=== PATIENT | male | born 1990 | race Hispanic/Latino ===

== ENCOUNTER 2019-09-08 17:23 | Inpatient (IN) | payer OTHER, SELFPAY ==
[~2019-09-08 17:23] MED LIST: Iopamidol-370 76% 500 ML 1 ML ONE; Lidocaine 2% PF 5 ML VIAL ONE
[2019-09-08 17:42] LABS: #Basophils 0.1 thou/uL (0.0-0.2); #Eosinphils 0.1 thou/uL (0.0-0.7); #Lymphocytes 5.3 thou/uL (1.20-3.40); #Monocytes 0.7 thou/uL (0.11-0.59); #Neutrophils 4.7 thou/uL (1.40-6.50); %Basophils 0.9 % (0.0-1.0); %Eosinophils 0.5 % (0.0-10.0); %Lymphocytes 48.9 % (21.0-51.0); %Monocytes 6.1 % (0.0-10.0); %Neutrophils 43.6 % (42.0-75.0); Hemoglobin 15.9 g/dL (14.0-18.0); Mean Corpuscular HGB CONC 34.9 g/dL (32.0-36.0); Mean Corpuscular Volume 91.7 fL (78.0-98.0); Mean Platelet Volume 8.5 fL (7.4-10.4); Platelet Count 243 thou/uL (130-400); RBC Distribution Width 11.5 % (11.5-14.5); Red Blood Cell (RBC) Count 4.99 mill/uL (4.70-6.10); White Blood Cell (WBC) Count 10.8 thou/uL (4.8-10.8)
[2019-09-08 17:46] LABS: INR-International Normal Ratio 1.2; PTT 30.2 SEC (22.9-36.1); Prothrombin Time 15.1 SEC (12.0-14.7)
[2019-09-08] MEDS ORDERED: Succinylcholine Chloride 20 MG/ML 10 ml SYRINGE FS ONE (17:48)
[2019-09-08 17:54] LABS: ALT (SGPT) 20 U/L (8-55); AST (SGOT) 20 U/L (5-34); Albumin 4.2 g/dL (3.5-5.0); Alkaline Phosphatase 87 U/L (40-110); Anion Gap 17 mmol/L (10-20); BUN (Urea Nitrogen) 24 mg/dL (8.9-20.6); Bilirubin, Total 0.8 mg/dL (0.2-1.2); Calc. Creatinine Clearance 0 mL/min (70-130); Carbon Dioxide 16 mmol/L (22-29); Chloride 110 mmol/L (98-107); Estimated GFR-MDRD 74; Globulin 2.7 g/dL (2.4-3.5); Protein, Total 6.9 g/dL (6.0-8.3); Sodium 140 mmol/L (136-145)
--- NOTE | 2019-09-08 17:54 | RAD ---
Chest one view HISTORY: Injury. FINDINGS: Cardiac silhouette and pulmonary vasculature are unremarkable. Mediastinum is midline. Tip of an endotracheal catheter overlies the thoracic inlet. Nasogastric tube descends to the abdomen . No lobar consolidation or evidence of pneumothorax. No displaced fractures evident. component prep operator leads overlie the chest. IMPRESSION : Nasogastric tube and endotracheal catheter are in good radiographic position.
[2019-09-08] MEDS ORDERED: Midazolam HCl 2 mg/2 ml Vial ONE (17:56)
[2019-09-08] MEDS ORDERED: Rocuronium Bromide 10 MG/ML (10ML VIAL) ONE (17:57)
[2019-09-08 18:01] LABS: Glucose 163 mg/dL (70-105); Potassium 2.8 mmol/L (3.5-5.1)
[2019-09-08] MEDS ORDERED: fentaNYL Citrate/PF 2,000 MCG in Sodium Chloride 0.9% 60 ML IV SCH ×2 (18:06→20:32)
[2019-09-08] MEDS ORDERED: Adacel (T-DAP) 0.5 ML SYRINGE ONE (18:11)
[2019-09-08] MEDS ORDERED: Fentanyl 100 MCG/2 ML VIAL ONE ×2 (18:11)
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
[2019-09-08] MEDS ORDERED: Potassium Chloride 40 MEQ in Sodium Chloride 0.9% 250 ML 250 ML IVPB SCH (18:30)
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
[2019-09-08 18:53] LABS: Actual Bicarbonate (HCO3a) 15.5 mEq/L (22-28); Analyzer IN Cardio ER; Base Excess (BEa) -6.9 mEq/L (-2.0 to +3.0); Calcium, Ionized 1.11 mmol/L (1.12-1.30); Carboxyhemoglobin (COHb) 0.3 gm% (0.0-3.0); Hemoglobin (Hb) 14.6 g/dL (14.0-18.0); O2 Tension (PaO2) 289.7 mmHg (80.0-100.0); Potassium - ABG Lab 3.58 mmol/L (3.70-5.30); pH, Arterial 7.42 (7.35-7.45)
[2019-09-08 18:55] LABS: CO2 Tension 24.5 mmHg (35.0-45.0)
[2019-09-08 18:56] LABS: ALV-art Gradient 36.175 (0-20)
[2019-09-08 19:23] LABS: Bacteria/HPF None Seen HPF (None Seen); Bilirubin Negative (Negative); Blood, Urine Negative (Negative); Clarity Clear (Clear); Glucose, Urine (Dipstick) Normal (Negative); Leukocyte Negative Leu/uL (Negative); Nitrite Negative (Negative); Protein, Urine (Dipstick) 30 mg/dL (Neg-Trace); RBC/HPF 0-3 HPF (0-3); Squamous Epithelial None Seen HPF (0-3); WBC/HPF 0-3 HPF (0-3)
[2019-09-08 19:30] LABS: Amphetamine Not Detected (NotDetected); Barbiturates Screen Not Detected (NotDetected); Benzodiazepine Screen Not Detected (NotDetected); Cocaine Metabolite Screen Not Detected (NotDetected); Medtox Control Line Valid? VALID (VALID); Medtox Reader # READER 1; Methadone Not Detected (NotDetected); Methamphetamine Not Detected (NotDetected); Opiate Screen Not Detected (NotDetected); Oxycodone Screen Not Detected (NotDetected); Phencyclidine (PCP) Not Detected (NotDetected); THC/Cannabinoid Screen Not Detected (NotDetected); Tricyclic Screen Not Detected (NotDetected)
--- NOTE | 2019-09-08 20:14 | CT ---
CT arteriogram neck with IV contrast and 3-D imaging CT arteriogram head with IV contrast and 3-D imaging HISTORY: Injury. Extensive skull base fracture. FINDINGS: There is good contrast opacification of the aortic arch with normal branching of the great vessels. Good flow into each carotid and vertebral system. No evidence of dissection. At the left cavernous sinus, there is early contrast opacification. Flow is seen within the left inte rnal carotid artery. This is at the level of the coronally oriented sphenoid fracture. Extensive pneumocephalus and other traumatic findings are as detailed on prior CT brain and face. [place] is intact. Good flow into each cerebral and cerebellar system. No enhancing brain le sions. IMPRESSION : Left carotid-cavernous fistula. Findings were called to Dr. Harris in the emergency department at 2001 hours. Code CR.
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
[2019-09-08] MEDS ORDERED: Ondansetron ODT 4 MG TAB PO PRN (20:26)
[2019-09-08] MEDS ORDERED: Ventilator Sedation Protocol 1 EACH FS SCH (20:26)
[2019-09-08] MEDS ORDERED: hydrALAZINE 20 MG/ML VIAL SLOW IVP PRN (20:26)
[2019-09-08] MEDS ORDERED: Dextrose 5% in Water 1,000 ML IV PRN (20:26)
[2019-09-08] MEDS ORDERED: Ondansetron PF 4 MG/2 ML Vial IVP PRN (20:26)
[2019-09-08] MEDS ORDERED: Dextrose 50% Abboject 50 ML SYRINGE SLOW IVP PRN (20:26)
[2019-09-08] MEDS ORDERED: Propofol BOLUS 1,000 MG/100 ML VIAL IV PRN (20:32)
[2019-09-08] MEDS ORDERED: Fentanyl BOLUS 250 ML IVPB PRN (20:32)
[2019-09-08] MEDS ORDERED: Morphine 2 MG/ML SYRINGE SLOW IVP PRN (20:32)
[2019-09-08] MEDS ORDERED: Lorazepam 2 MG/ML VIAL SLOW IVP PRN (20:32)
[2019-09-08] MEDS ORDERED: DISCONTINUE PREVIOUS NARCOTIC PAIN MEDICATIONS AND BENZODIAZEPINES FS SCH (20:32)
[2019-09-08] MEDS ORDERED: Propofol 1,000 MG/100 ML VIAL IV PRN (20:32)
[2019-09-08 20:41] LABS: Actual Bicarbonate (HCO3a) 18.3 mEq/L (22-28); Analyzer IN Cardio OR; Base Excess (BEa) -6.2 mEq/L (-2.0 to +3.0); CO2 Tension 33.2 mmHg (35.0-45.0); Calcium, Ionized 1.13 mmol/L (1.12-1.30); Carboxyhemoglobin (COHb) 0.3 gm% (0.0-3.0); Hemoglobin (Hb) 14.4 g/dL (14.0-18.0); O2 Tension (PaO2) 194.8 mmHg (80.0-100.0); pH, Arterial 7.36 (7.35-7.45)
[2019-09-08] MEDS: Sodium Chloride 0.9% 1,000 ML IV SCH (20:44)
[2019-09-08 20:47] LABS: Puncture Site RRA
[2019-09-08] MEDS ORDERED: Famotidine/PF 20 mg/2ml Vial SLOW IVP SCH (21:00)
[2019-09-08] MEDS: Pantoprazole 40 MG VIAL IVP SCH (21:41)
[2019-09-08] MEDS: CEFAZOLIN 2 GM in Premix Bag 1 BAG IVPB SCH (21:42)
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
[2019-09-09 03:38] LABS: #Lymphocytes 1.2 thou/uL (1.20-3.40); #Monocytes 1.3 thou/uL (0.11-0.59); %Basophils 0.1 % (0.0-1.0); %Eosinophils 0.2 % (0.0-10.0); %Lymphocytes 6.4 % (21.0-51.0); %Monocytes 6.8 % (0.0-10.0); %Neutrophils 86.6 % (42.0-75.0); Mean Corpuscular HGB CONC 34.8 g/dL (32.0-36.0); Mean Corpuscular Hemoglobin 31.7 pg (27.0-31.0); Mean Corpuscular Volume 91.2 fL (78.0-98.0); Mean Platelet Volume 8.4 fL (7.4-10.4); Platelet Count 195 thou/uL (130-400); RBC Distribution Width 11.6 % (11.5-14.5); White Blood Cell (WBC) Count 18.5 thou/uL (4.8-10.8)
[2019-09-09 03:55] LABS: Anion Gap 11 mmol/L (10-20); BUN (Urea Nitrogen) 20 mg/dL (8.9-20.6); Calc. Creatinine Clearance 99 mL/min (70-130); Calcium 7.8 mg/dL (7.8-10.44); Carbon Dioxide 20 mmol/L (22-29); Chloride 111 mmol/L (98-107); Estimated GFR-MDRD Greater than 90; Glucose 134 mg/dL (70-105); Potassium 3.9 mmol/L (3.5-5.1); Sodium 138 mmol/L (136-145)
[2019-09-09] MEDS ORDERED: Sodium Chloride 0.9% 500 ML IV PRN (04:00)
[2019-09-09] MEDS ORDERED: Sodium Chloride 0.9% 500 ML IV SCH (04:00)
[2019-09-09] MEDS ORDERED: Sodium Chloride 0.9% 500 ML IV ONE (04:00)
[2019-09-09] MEDS: CEFAZOLIN 2 GM in Premix Bag 1 BAG IVPB SCH ×3 (05:35→20:59)
[2019-09-09] MEDS: Sodium Chloride 0.9% 1,000 ML IV SCH ×2 (05:35→12:46)
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
[2019-09-09 08:25] LABS: Actual Bicarbonate (HCO3a) 18.9 mEq/L (22-28); Base Excess (BEa) -5.3 mEq/L (-2.0 to +3.0); CO2 Tension 32.4 mmHg (35.0-45.0); Calcium, Ionized 1.11 mmol/L (1.12-1.30); Carboxyhemoglobin (COHb) 0.3 gm% (0.0-3.0); Hemoglobin (Hb) 12.2 g/dL (14.0-18.0); O2 Tension (PaO2) 211.6 mmHg (80.0-100.0); Potassium - ABG Lab 3.79 mmol/L (3.70-5.30); pH, Arterial 7.38 (7.35-7.45)
[2019-09-09 08:27] LABS: Puncture Site RRA
--- NOTE | 2019-09-09 08:35 | CT ---
PRELIMINARY REPORT/[facility]/EMERGENCY AFTER HOURS PROCEDURE: EXAM: CT Head Without Intravenous Contrast. CLINICAL HISTORY: F/U TBI TECHNIQUE: Axial computed tomography images of the head/brain without intravenous contrast. COMPARISON: CT\NH\SR - CT BRAIN WO CON - 09/08/2019 05:50 PM CDT FINDINGS: BRAIN: No acute intraparenchymal hemorrhage. No mass lesion. No CT evidence for acute territorial inf arct. No midline shift or extra-axial collection. VENTRICLES: No hydrocephalus. SINUSES AND MASTOIDS: There is small air fluid level seen in bilateral maxillary sinuses, slightly in creased compared to prior examination. SOFT TISSUES: No significant facial or scalp soft tissue swelling evident. No radiopaque foreign body is seen. BONES: There is extensive skull base fracture including the left temporal bone, petrous bone, sphenoi d bone, right petrous bone. There is fracture of the anterior wall of the left maxillary sinus. There is a fracture of the lateral wall of the left maxillary sinus and the left orbit. MISCELLANEOUS: There is a pneumocephalus, decreased compared to prior examination. IMPRESSION: 1. There is extensive skull base fracture including the left temporal bone, petrous bone, sphenoid anur[place]ha ne, right petrous bone. There is fracture of the anterior wall of the left maxillary sinus. There is a fracture of the lateral wall of the left maxillary sinus and the left orbit. 2. There is a pneumocephalus, decreased compared to prior examination. 3. There is small air fluid level seen in bilateral maxillary sinuses, slightly increased compared to prior examination. ELECTRONICALLY SIGNED BY: Morena Robb MD Sep 09, 2019 4:21:13 AM CDT This report is intended for review by the ordering physician only, in accordance of law. If you recei ve this report in error, please call [facility] at [phone]. FINAL REPORT EMERGENCY AFTER HOURST CT BRAIN: IMPRESSION: Agree with the preliminary interpretation. POS: JOSEY
--- NOTE | 2019-09-09 08:59 | RAD ---
PORTABLE CHEST: DATE: 09/09/2019. PROVIDED CLINICAL HISTORY: Respiratory insufficiency. FINDINGS: Comparison 09/08/2019. Cardiac and mediastinal silhouette is unchanged in appearance. Endotracheal t ube and enteric catheter were demonstrated in similar positions. No focal consolidation, pleural flu id, or pneumothorax apparent. IMPRESSION: Stable radiographic appearance of the chest. POS: JOSEY
[2019-09-09] MEDS: Pantoprazole 40 MG VIAL IVP SCH (09:03)
--- NOTE | 2019-09-09 11:47 | PRG ---
DATE OF SERVICE: 09/09/2019 SUBJECTIVE: Mr. Bill Dewitt is a 28-year-old man, who suffered blunt head trauma yesterday while working on the vehicle. He sustained multiple traumatic injuries including multiple skull base fractures, left carotid/cavernous fistula. No apparent intracranial parenchymal hemorrhage. The patient has remained on mechanical ventilator support overnight. This morning, when lied on sedation, he moves all extremities and follows commands with a [place] Coma Scale of 11T. He has had transient right mydriasis. Urinary output which was low responded to fluid boluses. Currently, urinary output is adequate for the patient's age and weight. OBJECTIVE: VITAL SIGNS: Currently include blood pressure of 109/60, pulse 84, respiratory rate is 18, temperature 98.5 degrees Fahrenheit, oxygen saturation is 100% on FiO2 of 30%. HEENT: Right pupil is 4 mm, left is 3 mm, and both are reactive to light. HEART: Regular rate and rhythm. LUNGS: Clear to auscultation bilaterally. Breathing regular and nonlabored. ABDOMEN: Soft, nontender, nondistended. Liver and spleen nonpalpable below costal margin. EXTREMITIES: 2+ radial and pedal pulses bilaterally. No ankle edema is present. NEUROLOGIC: No focal deficits present. LABORATORY FINDINGS: CBC with 18,500 white blood cells, hemoglobin and hematocrit 14.0 and 40.2 respectively, platelet count is 195,000. Metabolic profile; sodium 138, potassium 3.9, chloride is 111, bicarb 20, BUN 20, creatinine 0.89, glucose 134. IMPRESSIONS: Post injury, 1. Status post blunt head trauma. 2. Multiple skull base fractures with resolving pneumocephalus on repeat brain CT scan this morning. 3. Resolving acute posttraumatic respiratory failure. PLAN: 1. The patient is weaned and successfully extubated to nasal cannula oxygen. 2. We will initiate physical and occupational therapy. 3. Cerna catheter will be discontinued. 4. Above findings and plan discussed with the patient prior to intubation. TIME SPENT: Total critical care time is 35 minutes. Job ID: [id number]
[2019-09-09] MEDS ORDERED: traMADol HCl 50 MG TAB PO PRN (14:17)
[2019-09-09] MEDS ORDERED: Acetaminophen 500 MG TAB PO SCH (14:30)
[2019-09-09] MEDS: Acetaminophen 325 MG TAB PO SCH ×2 (15:27→19:31)
[2019-09-09] MEDS: Famotidine 20 MG TAB PO SCH (19:31)
[2019-09-09] MEDS: traMADol HCl 50 MG TAB PO PRN (19:34)
--- NOTE | 2019-09-10 00:14 | PRG ---
DATE OF SERVICE: 09/09/2019 SUBJECTIVE: Mr. Dewitt remains in ICU. The patient was extubated today. The patient tolerated with extubation pretty well. He is doing good. Pain was well controlled. His urine is adequate. His vital signs have been stable. PHYSICAL EXAMINATION: GENERAL: Currently, the patient is lying down in bed, comfortable, with no acute respiratory distress. VITAL SIGNS: Heart rate 75, blood pressure 101/62, and O2 saturation 100% on room air. LUNGS: Clear bilaterally. HEART: Regular rate and rhythm. ABDOMEN: Soft, nondistended. HEENT: Right pupil is 3 mm, reactive to light. The left pupil is 4 to 5 mm, unresponsive to light. NEUROLOGIC: The patient is able to move all extremities. Gross sensory intact. GCS 15. ASSESSMENT: 1. Status post blunt head trauma. 2. Multiple skull base fracture, with result of pneumocephalus on repeat CT scan. PLAN: Continue supportive care. Continue pain control. Anticipate transfer to surgical floor tomorrow. Job ID: [id number]
[2019-09-10] MEDS: Acetaminophen 325 MG TAB PO SCH ×4 (03:39→22:10)
[2019-09-10 04:05] LABS: #Eosinphils 0.1 thou/uL (0.0-0.7); #Lymphocytes 1.4 thou/uL (1.20-3.40); #Monocytes 0.7 thou/uL (0.11-0.59); %Basophils 0.2 % (0.0-1.0); %Eosinophils 0.7 % (0.0-10.0); %Lymphocytes 13.7 % (21.0-51.0); %Monocytes 7.2 % (0.0-10.0); %Neutrophils 78.2 % (42.0-75.0); Hemoglobin 11.4 g/dL (14.0-18.0); Mean Corpuscular HGB CONC 33.8 g/dL (32.0-36.0); Mean Corpuscular Hemoglobin 31.4 pg (27.0-31.0); Mean Corpuscular Volume 92.8 fL (78.0-98.0); Mean Platelet Volume 8.4 fL (7.4-10.4); Platelet Count 163 thou/uL (130-400); RBC Distribution Width 11.5 % (11.5-14.5); Red Blood Cell (RBC) Count 3.63 mill/uL (4.70-6.10); White Blood Cell (WBC) Count 10.3 thou/uL (4.8-10.8)
[2019-09-10] MEDS: CEFAZOLIN 2 GM in Premix Bag 1 BAG IVPB SCH ×3 (05:42→22:10)
--- NOTE | 2019-09-10 09:52 | PRG ---
DATE OF SERVICE: 09/10/2019 I saw Mr. Dewitt in the ICU this morning. The patient has been extubated. Can now communicate. At baseline he has some weakness of the lateral rectus, corrects with effort. This is in the left eye. Also, in the left eye, there is loss of vision. Light and dark can be appreciated, but he cannot count fingers. Among the electronically recorded vital signs, 99.0 is the right temperature actually, blood pressure is between 90s and 100s. The aforementioned deficits are found on his neurological examination. That is a relative afferent pupillary defect on the left due to loss of vision. There is some weakness of the sixth nerve or perhaps a reversion to a latent strabismus with loss of vision from that eye. Medial rectus trapping from fracture is possible as well. However, when he voluntarily moves the eye, he has good lateral rectus function and he can move his eyes in multiple directions with primary gaze in a fashion that is conjugate with the contralateral eye. The sclera is not injected. The eye is not proptotic. The lid is not swollen. There is no pronator drift or neglect. I do not find any other lateralizing neurological deficits. Our plan with Mr. Dewitt for his small CC fistula and severe skull base fractures is for conservative approach for now. Hopefully his inflammatory response of the fractures, via loss any CSF leaks that were created in that the room of the optic canal allows for some recovery of vision. As mentioned yesterday, any surgical approach to that optic nerve puts the carotid artery at risk along with the left cerebral hemisphere. Job ID: [id number] MTDD
[2019-09-10] MEDS: Famotidine 20 MG TAB PO SCH ×2 (10:16→22:10)
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
[2019-09-11] MEDS: Acetaminophen 325 MG TAB PO SCH ×4 (05:22→23:45)
[2019-09-11] MEDS: CEFAZOLIN 2 GM in Premix Bag 1 BAG IVPB SCH ×3 (05:23→21:20)
--- NOTE | 2019-09-11 06:56 | CON ---
DATE OF CONSULTATION: 09/10/2019 TIME OF CONSULT: 12 noon. REASON FOR CONSULTATION: Loss of vision, left eye. HISTORY OF PRESENT ILLNESS: The patient is a 29-year-old man who was working underneath his car when the kb or other support tipped and the car fell on him. He was brought to the emergency room and intubated on 09/08/2019. After he was extubated, he stated that his left eye could not see well. PHYSICAL EXAMINATION: On examination, visual acuity without correction was J-1 for the right eye, which is normal. The left eye has absolute no light perception. The pupils are equal with a 4+ left relative afferent pupillary defect. The motility shows good alignment and full range of motion. Externally, he is fairly normal appearing with some mild bruising without swelling of the left lids and one small subconjunctival hemorrhage of the left eye. His pupils were dilated with Jose Maria-Synephrine and Mydriacyl. Fundus exam showed a cup/disk ratio of 0.4 for the right eye and 0.3 for the left eye. Optic rims at this time are of normal color, without edema. Both retinas are flat, without any defect, edema, or hemorrhages. The retinal vessels are patent. DIAGNOSTIC STUDIES: I visited with the radiologist who reviewed the left optic canal region, showing no obvious localized crush of the optic canal and optic nerve. IMPRESSION: Presumably, there is some point of damage to the optic nerve by some of the fractures. There is no expectation of recovery and no specific treatment recommended at this time. Job ID: [id number]
[2019-09-11] MEDS: traMADol HCl 50 MG TAB PO PRN ×2 (07:28→21:20)
[2019-09-11] MEDS: Famotidine 20 MG TAB PO SCH ×2 (08:15→21:21)
--- NOTE | 2019-09-11 08:49 | PRG ---
DATE OF SERVICE: Used to be Esdras, currently listed as Ezekiel. I visited with Bill Falcon in his hospital bed this morning. He is out of the ICU and he has been extubated. He still complains that he has a frontal headache and loss of vision on the left. Overnight, the highest temperature he recorded is 99.0 degrees Fahrenheit. Blood pressures have been in the 110s. There is still no vision other than light and dark from the left eye. The extraocular muscles do move the eye. I do believe the VIth nerve is working, although when gaze is relaxed, there is interval deviation of the left eye. Perhaps, there is latent strabismus and the eye is now markedly accentuated due to the loss of vision and no input through the optic system from the left side. We are planning in a few days to repeat the CT angiogram. It will be quite important on that test. We will get the CT done immediately following injection rather than allowing the venous phase to show up. They have a cavernous sinus filling last time, has either an early venous phase due to poor timing of the CT vis-a-vis the injection or there was a slow/small CC fistula. The eye remains noninjected and non-proptotic, so there is not undue pressure in the venous system or the superior orbital vein. Other than loss of vision, Mr. Falcon is doing well. Job ID: [id number] [facility]
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
[2019-09-12] MEDS: Acetaminophen 325 MG TAB PO SCH ×3 (05:20→19:12)
[2019-09-12] MEDS: CEFAZOLIN 2 GM in Premix Bag 1 BAG IVPB SCH ×2 (05:21→15:06)
[2019-09-12] MEDS: traMADol HCl 50 MG TAB PO PRN ×3 (05:21→19:12)
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
--- NOTE | 2019-09-12 08:53 | PRG ---
DATE OF SERVICE: 09/12/2019 I saw Mr. Falcon (previously Esdras) in his hospital room this morning. He is resting comfortably and asks when he can go home. Trauma Surgery Service is satisfied that no other injuries are life-threatening and likewise want to minimize his risk of exposure to infectious agents while in the hospital. Therefore, decision is being made to move his CT angiogram up in his schedule. Mr. Falcon has no new complaints. He still has no vision on the left side. Among the electronically recorded vital signs, I see a maximum temperature of 98.9 degrees Fahrenheit. Blood pressures have ranged between 105 and 123. There is no vision on the left side. There is accentuated motion with the extraocular muscles on the left side. There is no significant weakness of III, IV, or on that side, but he is losing his ability to conjugate his eye movements with his contralateral eye due to loss of vision. I do not find any lateralizing motor or sensory deficits. Plan today is get a CT angiogram. This has to be done with perfect contrast bolus to scan timing. If the scan is delayed and we get a venous phase filling throughout the brain scan, then we cannot make any assumptions regarding CC fistula. If, however, the scan is done with a bolus followed by immediate imaging, then we might be able to make some preliminary assessments as to whether he had a CC fistula that clotted off. Thankfully, the eye is not particularly injected, the sclera is normal in color, that is not proptotic, there is no lid engorgement. These all suggest that if there is a fistula, it is small. 10:58am addendum: The CTA was done. The venous phase still shows up on this scan, but there is no more prominence to the cavernous sinus on the left than there on the right or in the other venous sinuses. I am not convinced this is a high-flow fistula. He will need a repeat CT head in 1 month, which our office will arrange. If he develops an injected red sclera, proptosis, lid swelling on left, he will need a conventional angiogram. The ophthalmology team following his optic nerve injury/orbital fractures may have their own follow up arrangements requiring planning. Job ID: [id number] [facility]
[2019-09-12] MEDS: Famotidine 20 MG TAB PO SCH (09:05)
[2019-09-12] MEDS ORDERED: Iopamidol 370 76% 100 ML VIAL ONE (10:10)
--- NOTE | 2019-09-12 11:03 | CT ---
EXAM: CT ANGIOGRAM OF THE HEAD INDICATION: Follow-up posttraumatic left cavernous carotid fistula. COMPARISON: None TECHNIQUE: CT angiogram of the head and neck are performed in the axial plane. Three-dimensional refo rmatted images are submitted for interpretation. FINDINGS: CTA OF THE HEAD WITH AND WITHOUT CONTRAST: Noncontrast head CT: Small foci of pneumocephalus in the ventricular system is noted. The degree of p neumocephalus has significantly decreased. There is mucosal thickening of the visualized maxillary sinuses, ethmoid air cells and sphenoid sinuses. Multiple calvarial and facial fractures are redemons trated, incompletely evaluated. POSTCONTRAST CT OF BRAIN: Pathologic enhancement: No pathologic enhancement the brain. CTA OF THE BRAIN: Intracranial internal carotid arteries:Symmetric enhancement and luminal diameter. Anterior circulation: Symmetric enhancement and luminal diameter of the A1 and M1 segments. Symmetric enhancement and luminal diameter of the proximal A2 segments and proximal MCA branches. Intracranial vertebral arteries: Appropriate enhancement and luminal diameter. Bilateral PICA artery origins have appropriate enhancement and luminal diameter. Posterior circulation: Appropriate enhancement and luminal diameter of the basilar artery and bilater al P1 segments. Cavernous sinuses: On the arterial phase images, there continues to be an asymmetric increased blush of contrast in the left cavernous sinus, when compared to the contralateral side. There is symmetric enhancement involving the cavernous sinuses on the delayed images. Neither ophthalmic vein is significantly enlarged. IMPRESSION: Slight asymmetric blush of enhancement involving the left cavernous sinus on the arterial phase image s suggesting a residual cavernous carotid fistula. No significant ophthalmic vein dilatation. Transcribed Date/Time: 09/12/2019 11:16 AM
[2019-09-12 15:00] VITALS: BMI 22.4
[2019-09-12 16:06] VITALS: BP 107/67; TEMP 98.2
--- NOTE | 2019-09-14 08:01 | PQF ---
MIREYA GARCIA L GERARD MD [id number] CCU- [id number] CLINICAL DOCUMENTATION CLARIFICATION FORM: POST DISCHARGE Addendum to original discharge summary date: ____ Late entry note date: __ DATE:09/14/2019 ATTN: Gamaliel Herring Please exercise your independent, professional judgment in responding to the clarification form. Clinical indicators are provided on the bottom of this form for your review Please check appropriate box(s): Loss of consciousness Duration [ ] (30 min or less) [ ] (31 min to 59 min) [ ] (1 hour to 5 hours 59 min) [ ] (6 hours to 24 hours) [ ] Other Specified time: [ ] Unable to determine For continuity of documentation, please document condition throughout progress notes and discharge summary. Thank You. CLINICAL INDICATORS - SIGNS/ SYMPTOMS / LABS GCS 11 ED note p8 Pt working underneath the car and fell on him. States pt was originally unconscious but breathing ED note p8 Associated with loss of consciousness, blown L pupul , bleeding both nostrils and R ear H&P p2 09/07 S/p Crush injury to head with altered mental status PN p1 09/07 pneumocephalus with cerebral edema RISK FACTORS H&P p1 09/07 28 year-old male H&P p2 4 Multiple basilar fractures H&P p2 09/07 Pneumocephalus with left sided cerebral edema Consult p1 09/07 s/p fall PN p1 09/10 Carotid cavernous fistula TREATMENTS: JUL 26 Tylenol 560mg oral JUL 26 Utram 50mg oral JUL 26 IVF NS 1L Brain CT 09/07 PN p1 09/07 Mechanical Ventilation (This form is maintained as a part of the permanent medical record) 2014 [employer]. All Rights Reserved [email or web address]
--- NOTE | 2019-09-14 14:00 | CT ---
CT arteriogram neck with IV contrast and 3-D imaging CT arteriogram head with IV contrast and 3-D imaging HISTORY: Injury. Extensive skull base fracture. FINDINGS: There is good contrast opacification of the aortic arch with normal branching of the great vessels. Good flow into each carotid and vertebral system. No evidence of dissection. At the left cavernous sinus, there is early contrast opacification. Flow is seen within the left inte rnal carotid artery. This is at the level of the coronally oriented sphenoid fracture. Extensive pneumocephalus and other traumatic findings are as detailed on prior CT brain and face. [place] is intact. Good flow into each cerebral and cerebellar system. No enhancing brain le sions. IMPRESSION : Left carotid-cavernous fistula. Findings were called to Dr. Harris in the emergency department at 2001 hours. Code CR. Transcribed Date/Time: 09/14/2019 1:59 PM
== END 2019-09-12 19:17 | disposition home or self-care (01) | DRG 82 ==
LOC: ERS 17:23 → EDBD 17:34 → CCU 17:34 → SURG A 09-10 14:39
PROVIDERS: ADMIT Surgery; ATTEND Surgery
PROC: 5A1935Z Respiratory Ventilation, Less than 24 Consecutive Hours (ICD-10-PCS; principal; 2019-09-08)
PROC: 0BH17EZ Insertion of Endotracheal Airway into Trachea, Via Natural or Artificial Opening (ICD-10-PCS; 2019-09-08)
PROC: 0HQ0XZZ Repair Scalp Skin, External Approach (ICD-10-PCS; 2019-09-08)
PROC: 3E0234Z Introduction of Serum, Toxoid and Vaccine into Muscle, Percutaneous Approach (ICD-10-PCS; 2019-09-08)
DX: S02.19XA Other fracture of base of skull, initial encounter for closed fracture (principal); J96.00 Acute respiratory failure, unspecified whether with hypoxia or hypercapnia; S06.1X9A Traumatic cerebral edema with loss of consciousness of unspecified duration, initial encounter; S04.012A Injury of optic nerve, left eye, initial encounter; S15.0 Injury of carotid artery of neck; G93.89 Other specified disorders of brain; S02.122A Fracture of orbital roof, left side, initial encounter for closed fracture; E87.6 Hypokalemia; W20.8XXA Other cause of strike by thrown, projected or falling object, initial encounter; R40.2362 Coma scale, best motor response, obeys commands, at arrival to emergency department; R40.2142 Coma scale, eyes open, spontaneous, at arrival to emergency department; R40.2212 Coma scale, best verbal response, none, at arrival to emergency department; H57.04 Mydriasis; Z78.1 Physical restraint status; Z23 Encounter for immunization
CPT/HCPCS: 12001; 31500; 36415; 70450; 70486; 70496; 70498; 71045; 72125; 80048; 80053; 80306; 81003; 81015; 82805; 83735; 85025; 85610; 85730; 86850; 86900; 86901; 90471; 90715; 94002; 94003; 94640; 96365; 96374; 96375; 96376; C9113; G0390; J0690; J2001; J2250; J2704; J3010; J3480; J3490; J7050; J7620; Q9967

== ENCOUNTER 2021-04-18 17:39 | Emergency (ER) | payer SELFPAY | END 2021-04-18 18:11 | LOC: ERS 17:39 | DX: Z03.89 Encounter for observation for other suspected diseases and conditions ruled out (principal) | CPT/HCPCS: 99282 ==